=== PATIENT | male | born 1990 | race Caucasian/White ===

== ENCOUNTER 2024-09-11 11:16 | Outpatient (CLI) | payer OTHER, SELFPAY ==
--- NOTE | ~2024-09-11 | XR_ITS ---
XR thoracic spine 3V 09/11/2024 11:47 Indication: Acute midline pain Procedure: 6 views thoracic spine Comparison: No prior studies for comparison. Findings: There is loss of anterior vertebral body height at T8-L1 with accentuated kyphosis. There a re posterior fusion changes at T2-T4 and T7-T9. Prominent bridging osteophytes at all thoracic spine levels anteriorly. Pedicle hardware intact. No paraspinal soft tissue abnormality. Surrounding osseou s structures within normal limits. Impression: 1: Chronic wedge compression deformities of T8-L1 with accentuated kyphosis. 2: Posterior fusion at T2-4 and T7-T9. Reviewed, dictated and finalized at location A. Impression: 1: Chronic wedge compression deformities of T8-L1 with accentuated kyphosis. 2: Posterior fusion at T2-4 and T7-T9.
--- NOTE | ~2024-09-11 | XR_ITS ---
XR lumbar spine min 4V 09/11/2024 11:47 Indication: Back pain Procedure: Acute midline back pain Comparison: No prior studies for comparison. Findings: There is mild wedge compression deformity of L1 and T12, likely chronic. Prominent bridging osteophytes of the lower thoracic and upper lumbar spine. There is multilevel facet hypertrophy. The re is disc narrowing at L5-S1. No evidence for spondylolisthesis. Impression: 1: Moderate lumbar spondylosis with chronic wedge compression deformities of T12 and L1. Reviewed, dictated and finalized at location A. Impression: 1: Moderate lumbar spondylosis with chronic wedge compression deformities of T1 2 and L1.
--- OUTSIDE RECORDS SUMMARY | 2024-09-11 11:43 | XMS_ITS | Data Portability ---
Author Organization [facility] Vishal Jennifer Address [address] [place] [address] Care Team Providers Care Manager Lighting Name Role Phone TASHIA SMITH Primary Care Provider SILVIO Banks Psychiatrist Assessment No assessment recorded. Plan of Treatment Reminders Order Date Submit Date Provider Last Modified By Organization Details Last Modified Time Details Appointments None recorded . Lab HbA1c (hemoglo bin A1c), blood 018 07/15/19 18 [facility], [address], [place], [address], 8 16:28:32 lipid panel, serum 018 07/15/19 18 [facility], [address], [place], [address], 8 16:28:31 CMP, serum or plasma 018 07/15/19 18 [facility], [address], [place], [address], 8 16:28:31 Referral None recorded . Procedures None recorded . Surgeries None recorded . Imaging None recorded . Medication Orders None recorded . Patient Targets Encounter Date Encounter Id Patient Goals Patient Target Last Modified By Organization Details Last Modified Time 07/14/[id number] Cut down on soda and juice eewig Not available 07/14/2017 16:22:50 Patient Instructions Encounter Date Encounter Id Patient Instructions Last Modified By Organization Details Last Modified Time 07/14/[id number] When You Want to Lose Weight: Care Instructions eewig Not available 07/14/2017 16:28:31 starting a weigh t loss plan: care instructions eewig Not available 07/14/2017 16:28:31 body mass index: care instructions eewig Not available 07/14/2017 16:28:31 A healthy lifestyle: care instructions eewig Not available 07/14/2017 16:28:31 See a dentist Walk 30 minutes/day Cut out soda/juice eewig Not available 07/14/2017 16:29:19 Patient to RTC i n 2 weeks for lab results f/u and will at that time decide if he would like to try Weight Watchers/PT; given goal to cut soda back to 1-2 times/week but patient staets that he does not feel that this is realistic for him eewig Not available 07/15/2017 08:42:27 Reason for Referral None Reported. Problems No Known Problems Procedures Surgical History Date Name Laterality Status Provider Name and Address Organization Details Recorded Time 6 Tonsillectomy completed Lady Ramey MA [facility] 07/14/2017 15:51:36 Imaging Results None recorded. Procedure Notes None recorded. Medical Equipment None Reported. Allergies No known drug allergies Medications Name Sig Start Date Stop Date Status Note LastModified by Organization Details LastModified Time venlafaxine ER 37.5 mg capsule,exten ded release 24 hr 07/14 completed Not Available Not Available Not Available venlafaxine ER 75 mg capsule,exten ded release 24 hr active Rx'd by Dr. Ventura Not Available Not Available Not Available buspirone 10 mg tablet active Rx'd by Dr. Ventura Not Available Not Available Not Available Vitals Date Recorded Systolic And Diastolic Provider Name and Address Organization Details Last Updated DateTime 07/14/2017 126/84 mm[Hg] Tashia Smith PA-C Attn: [facility],[address] [facility], [place], [address], [facility] 07/14/2017 16:27:43 Date Recorded Body height Body mass index (BMI) Body weight Oxygen saturation Oxygen saturation in Arterial blood by Pulse oximetry Heart rate Body temperature Systolic And Diastolic Provider Name and Address Organization Details Last Updated DateTime 8 190.5 cm 54.5 kg/m2 020655. 27 g 99 % 99 % 112 /min 98.2 [degF] 136/100 mm[Hg] Lady Ramey [place] - [facility] 8 15:48:08 Social History Question Answer Notes LastModified by Organizat ion Details LastModified Time Tobacco Smoking Status Never Smoker Lady Ramey [place] null, [place] - [facility] 07/14/2017 15:50:12 Do You Have An Advance Directive? No Information not available 07/14/2017 What Is Your Level Of Caffeine Consumption? Moderate Information not available 07/14/2017 What Type Of Diet Are You Following? REGULAR Information not available 07/14/2017 Education 2 Year College Information not available 07/14/2017 Are There Any Guns Present In Your Home? No Information not available 07/14/2017 Hard Of Hearing Or Deaf In One Or Both Ears? No Information not available 07/14/2017 Legally Blind In One Or Both Eyes? No Information not available 07/14/2017 Marital Status Single Informatio n not available 07/14/2017 What Was The Date Of Your Most Recent Tobacco Screening? 07/14/2017 Information not available 09/08/2018 Performs Monthly Self-breast Exam? No Information not available 07/14/2017 Seat Belts Used Routinely No Information not available 07/14/2017 Smoke Alarm In Home Yes Information not available 07/14/2017 General Stress Level Medium Information not available 07/14/2017 Do You Use Sunscreen Routinely? Yes Information not available 07/14/2017 Sex: Unknown Functional Status Question Answer Note LastModified by Organization D etails LastModified Time What is your level of alcohol consumption? None Information not available 07/14/2017 What is your exercise level? None Information not available 07/14/2017 Mental Status None recorded. Family History Relationship Description Onset Age of this Age Resolved Age Notes LastModified by Organization Details LastModified Time Mother Asthma mnelsonma Not available 07/14/2017 15:49:14 Mother Cerebrovascu lar accident 59 mnelsonma Not available 15:49:39 Mother Diabetes mellitus mnelsonma Not available 2017 15:49:49 Mother Hypertensive disorder mnelsonma Not available 2017 15:50:01 Medical History Condition Response Coronary Artery Disease N Other N Atrial Fibrillation N High Blood Pressure Y Kidney or Bladder Problems N Thyroid Problems N GI Problems N Depression Y COPD N Blood Clots N Skin Problems N Anemia N Heart Attack (DE) N Anxiety Disorder Y Diabetes N Muscle, Joint, or Bone Problems N Seizures/Epilepsy N Acid Reflux (GERD) N Cancer N Stroke N Asthma Y Allergies Y High Cholesterol N Hepatitis N Liver Disease N Headaches N Heart Failure N Osteoporosis N Immunizations Vaccine Type Date Status Note Provider Nam e and Address Organization Details Recorded Time COVID-19, mRNA, LNP-S, PF, 30 mcg/0.3 mL dose 05/17/2020 completed Guicho mckeon [place] - [facility] 08/20/2020 16:26:15 COVID-19, mRNA, LNP-S, PF, 30 mcg/0.3 mL dose 06/07/2020 completed LING Palafox - [facility] 08/20/2020 16:26:36 Tdap 07/14/2017 completed Not Available [facility] 03/04/2019 02:35:25 Past Encounters Encounter ID Performer Location Encounter Start Date Encounter Closed Date Diagnosis/Indication Diagnosis SNOMED-CT Code Diagnosis ICD10 Code Diagnosis Note [id number] MD Belkis Flores (Adult Med) [address] [place] [phone] 07/14/2017 15:18:28 07/14/2017 16:36:46 Adult health examination 322297710 Z00.01 Body mass index 40+ - severely obese 113689006 Z68.43 Advised 30 minutes of exercise 5 days/week Advised to not drink his calories Advised 3 balanced meals/day with plenty of fruits and vegetables Discussed the options of Weight Watchers and gastric bypass with patient, states he is not interested at this time but will think about it Active or passive immunization 656227641 Z23 Depressive disorder [address] Ventura in psychiatry . Seasonal allergy 6408592 04 J30.2 Has tried Zyrtec without relief. Advised to try Claritin OTC. Acanthosis nigricans 402 407151 L83 Will check a1c Chronic low back pain 27 2005986 M54.5 Discussed that since this is chronic we would need to begin with PT and possibly an xrayLong discussion about his weight and how that is likely a large contributi ng factor to his back pain, which he states he knows but he doesn't know if he can do anything about this as he doesn't feel that he is able to give up soda and cannot exercise d/t back painStates that he has limited transporta tion and does not feel that PT is a good option for him at this time Health Concerns Section Related Observation LastModified by Organization Detai ls LastModified Time None Recorded Concern Status LastModified by Organization Details LastModified Time None Recorded Advance Directives Directive N: Payers Insurance Date Sequence Insurance Name Policy Number Policy Rice Covered Member ID Rice Member ID Guarantor Name 08/01/2020 1 [facility] - DOS PRIOR TO 2020 (MEDICAID REPLACEMENT - HMO) Obdulio Mesa [id number] Obdulio Mesa
--- OUTSIDE RECORDS SUMMARY | 2024-09-11 11:43 | XMS_ITS | Continuity of Care Document ---
Author Organization [facility] Address [address] [place] [address] [place] [address] Phone Care Team Providers Care [employer] E[employer]ctor Name Role Phone Michi Walker MD Unavailable Unavailable Allergies, Adverse Reactions, Alerts Substance Reaction Status Criticality No Known Allergies Active No Inform ation Medications Medication Instructions Dosage Effective Dates (start - stop) Status Comments Toprol XL 50 mg tablet,extended release take 1 tablet by oral route every day 50 MG - Active Norvasc 10 mg tablet take 1 tablet by or al route every day 10 MG - Active Effexor XR 75 mg capsule,extended release take 1 capsule by oral route every day with food 75 MG - Active buspirone 10 mg tablet take 1 tablet by oral route 3 times every day 10 MG - Active Procedures Procedure Date OFFICE/OUTPATIENT VISIT, EST OFFICE/OUTPATIENT VISIT, EST PREV VISIT, EST, AGE 18-39 OFFICE/OUTPATIENT VISIT, EST OFFICE/OUTPATIENT VISIT, EST OFFICE/OUTPATIENT VISIT, EST OFFICE/OUTPATIENT VISIT, EST OFFICE/OUTPATIENT VISIT, EST PREV VISIT, EST, AGE 18-39 OFFICE/OUTPATIENT VISIT, EST OFFICE/OUTPATIENT VISIT, EST OFFICE/OUTPATIENT VISIT, EST OFFICE/OUTPATIENT VISIT, EST OFFICE/OUTPATIENT VISIT, EST PREV VISIT, NEW, AGE 18-39 Advance Directives Directive Yes / No Effective Date File Name No Information Encounters Encounter Description Practice Location Reason(s) For Visit Diagnoses Date Provider Providers Copied on Encounter OFFICE/OUTPA TIENT VISIT, EST [facility], [address], [place], [place], [address], [place] tel:[phone] [facility] Htn (chief complaint) protein1 (chief complaint) anemia1 (chief complaint) anxiety1 (chief complaint) AnemiaEssential (primary) hypertensionGeneral ized Anxiety DisorderAbnormality of globulin 1 Aaron Borden. [address], [place], [place], [address] , [place]. tel:[phone] OFFICE/OUTPA TIENT VISIT, EST [facility], [address], [place], [place], [address], [place] tel:[phone] [facility] ear pain1 (chief complaint) HTN (chief complaint) PE (chief complaint) anemia1 (chief complaint) Essential (primary) hypertensionPulmona ry embolismOtalgia, left earAnemia 1 Aaron Borden. [address], [place], [place], [address] , [place]. tel:[phone] PREV VISIT, EST, AGE 18-39 [facility], [address], [place], [place], [address], [place] tel:[phone] [facility] Physical (chief complaint) Encounter for general adult medical examination without abnormal findings 0 Aaron Borden. [address], [place], [place], [address] , [place]. tel:[phone] OFFICE/OUTPA TIENT VISIT, EST [facility], [address], [place], [place], [address], [place] tel:[phone] [facility] ear pain1 (chief complaint) PE (chief complaint) rash (chief complaint) Otalgia, left earPulmonary embolismRash 0 Aaron Borden. [address], [place], [place], [address] , [place]. tel:[phone] OFFICE/OUTPA TIENT VISIT, [facility], [address], [place], [place], [address], [place] tel:[phone] [facility] anemia1 (chief complaint) INR (chief complaint) nutrition1 (chief complaint) protein1 (chief complaint) weakness1 (chief complaint) AnemiaAbnormalities of gaitAbnormal weight lossPulmonary embolismWeakness 3 0-202 0 Aaron Borden. [address], [place], [place], [address] , [place]. tel:[phone] OFFICE/OUTPA TIENT VISIT, [facility], [address], [place], [place], [address], [place] tel:[phone] [facility] leg fracture1 (chief complaint) HTN (chief complaint) weight loss1 (chief complaint) leg weakness1 (chief complaint) Essential (primary) hypertensionWeaknes sAbnormalities of gaitAbnormal weight lossPulmonary embolism 0 2 0 Aaron Borden. [address], [place], [place], [address] , [place]. tel:[phone] OFFICE/OUTPA TIENT VISIT, [facility], [address], [place], [place], [address], [place] tel:[phone] [facility] paralysis1 (chief complaint) HTN (chief complaint) DVT of legPulmonary embolismOther spondylosis, thoracic regionWeakness 8 0 Aaron Borden. [address], [place], [place], [address] , [place]. tel:[phone] Referring Provider: Michi Walker [address], [place], [place], [address]. tel:[phone] OFFICE/OUTPA TIENT VISIT, [facility], [address], [place], [place], [address], [place] tel:[phone] [facility] leg weakness1 (chief complaint) HTN (chief complaint) Essential (primary) hypertensionWeaknes s 9 Aaron Borden. [address], [place], [place], [address] , [place]. [phone] PREV VISIT, EST, AGE 18-39 [facility], [address], [place], [place], [address], [place] [phone] [facility] Physical (chief complaint) Encntr for general adult medical exam w/o abnormal findings 9 Aaron Borden. [address], [place], [place], [address] , [place]. [phone] Referring Provider: Katie Montes [address], [place], [place], [address]. tel:[phone] OFFICE/OUTPA TIENT VISIT, [facility], [address], [place], [place], [address], [place] [phone] [facility] fatigue1 (chief complaint) hematuria1 (chief complaint) HTN (chief complaint) obesity1 (chief complaint) Body mass index (BMI) 60.0-69.9, adultHematuriaEssen tial (primary) hypertensionFatigue Folic acid deficiency 9 Aaron Hurtado [address], [place], [place], [address] , [place]. tel:[phone] Referring Provider: Katie Montes [address], [place], [place], [address]. tel:[phone] OFFICE/OUTPA TIENT VISIT, [facility], [address], [place], [place], [address], [place] [phone] [facility] folate1 (chief complaint) HTN (chief complaint) hematuria1 (chief complaint) vitamin D1 (chief complaint) fatigue1 (chief complaint) Body mass index (BMI) 50-59.9 , adultFolic acid deficiencyHematuria Essential (primary) hypertensionFatigue Generalized Anxiety Disorder 9 Aaron Hurtado [address], [place], [place], [address] , [place]. tel:[phone] OFFICE/OUTPA TIENT VISIT, [facility], [address], [place], [place], [address], [place] tel:[phone] [facility] HTn (chief complaint) sinus1 (chief complaint) hematuria1 (chief complaint) Essential (primary) hypertensionHematur iaAcute sinusitisBody mass index (BMI) 50-59.9 , adultFolic acid deficiency 8 Aaron Borden. [address], [place], [place], [address] , [place]. tel:[phone] Referring Provider: Katie Montes [address], [place], [place], [address]. tel:[phone] OFFICE/OUTPA TIENT VISIT, [facility], [address], [place], [place], [address], [place] tel:[phone] [facility] hematuria1 (chief complaint) fatigue1 (chief complaint) HTN (chief complaint) Body mass index (BMI) 50-59.9 , adultEssential (primary) hypertensionHematur iaFolic acid deficiencyFatigue 8 Aaron Hurtado [address], [place], [place], [address] , [place]. [phone] Referring Provider: Katie Montes [address], [place], [place], [address]. tel:[phone] OFFICE/OUTPA TIENT VISIT, [facility], [address], [place], [place], [address], [place] tel:[phone] [facility] fatigue1 (chief complaint) vitamin1 (chief complaint) hematuria1 (chief complaint) lumbago1 (chief complaint) Body mass index (BMI) 50-59.9 , adultHematuriaFolic acid deficiencyEssential (primary) hypertensionLumbago 8 Aaron Hurtado [address], [place], [place], [address] , [place]. [phone] Referring Provider: Katie Montes [address], [place], [place], [address]. tel:[phone] PREV VISIT, NEW, AGE 18-39 [facility], [address], [place], [place], [address], tel:[phone] [facility] PHysical (chief complaint) Encntr for general adult medical exam w/o abnormal findings 8 Aaron Borden. [address], [place], [place], [address] , [place]. [phone] Referring Provider: Michi Walker, [address], [place], [place], [address]. tel:[phone] Family History Family Member Type Diagnosis Age At Onset Mother Problem (finding) Stroke 59 Father Problem (finding) Alive and well Payers Payer name Insurance type Covered alliance party ID Authoriza tion(s) No Information Social History Type Description Quantity Date Captured Comments Alcohol Use Details No Caffeine Use Details Unknown Tobacco Use Status Current non-smoker 20 Smoking Status Never smoker Sex Male Vital Signs Date / Time: Height Weight BMI Pulse Rate Blood Pressure Temperature Respiratory Rate Body Surface Area Head Circumference BMI percentile Pulse Ox Inhaled Ox 11:51 PM 75.00 in 350.00 lbs 43.7 5 kg/m eter (2) Chief Complaint And Reason For Visit From encounter dated '01/20/2021 20:26'. Htn (chief complaint). Description: Pt takes norvasc and toprol and he states that his bp is ok at home but he never checks it. Pt denies any chest pain or headache protein1 (chief complaint). Description: Pt has mild high total protein and total globulin. Pt is noncompliant with lab work anemia1 (chief complaint). Description: Pt has history of microcytic anemia Pt denies any blood loss Pt never repeat blood count as recommended. anxiety1 (chief complaint). Description: Pt has chronic anxiety and depression Pt takes effexor andbuspar and doing ok Pt denies any suicidal or homicidal thought Pt denies any crying spells ,pt sees psychiatrist. Plan Of Treatment Date Type Action Status Goal Special diet education compl eted Goal Special diet education compl eted Goal Special diet education compl eted Goal Special diet education compl eted Goal Special diet education compl eted Goal Special diet education compl eted Goal Special diet education compl eted Goal Prescribed dietary intake co mpleted Referral Ordered: Physical Therapy (related to Other spondylosis, cervicothoracic region) ordered Referral Referred To: Physical Therapy Ordered: Referrals: Physical Therapy. Evaluate and treat ordered Referral Ordered: CT ABDOMEN&PELVIS W/CONTRAST ordered Referral Ordered: LUMBAR XRAY AP AND LAT ONLY ordered History Of Present Illness Encounter Date Complaint History Of Prese nt Illness protein1 Pt has mild high total protein and total globulin. Pt is noncompliant with lab work Htn Pt takes norvasc and toprol and he states that his bp is ok at home but he never checks it. Pt denies any chest pain or headache anemia1 Pt has history o f microcytic anemia Pt denies any blood loss Pt never repeat blood count as recommended. anxiety1 Pt has chronic a nxiety and depression Pt takes effexor and buspar and doing ok Pt denies any suicidal or homicidal thought Pt denies any crying spells ,pt sees psychiatrist. PE Pt has been off coumadin for 6 months Pt denies any leg pain or swelling or any chest pain or sob. anemia1 Pt had mild anem ia Pt denies any blood loss Pt has not done repeat lab yet HTN Pt takes norvasc and metoprolol. Pt only has been taking metoprolol 50 mg once per day instead of TID Pt states that he does not know what happened. Pt states that his bp has been fine with metoprolol once per day and norvasc. Pt denies any chest pain or headache ear pain1 Pt c/o acute lef t ear pain for 3-4 days. Pt notices mild muffled hearing Pt denies any drainage Pt denies any swimming or water into left ear Pt feels mild left ear pressure as well. Pt denies any sinus symptoms Pt denies any sore throat. Physical Pt needs annual physical. Pt has history of spinal stenosis and partial leg paralysis. Pt is s/p spinal surgery. Pt is recovering well .Pt is doing PT at home and he is gaining strength and he is able to walk with walker. Pt has HTn. His bp is around 130/80s with metoprolol and norvasc. . Pt weaned himself off neurontin and doing ok .Pt denies any neuropathy symptoms. Pt has anxiety and depression .Pt takes effexor and buspar and doing ok Pt denies any suicidal or homicidal thought Pt is off baclofen also Pt had post op DVT with PE 10 months ago. Pt wants to get off coumadin. ear pain1 Pt c/o acute ons et of left ear pain since yesterday. Pt denies any drainage Pt notices muffled hearing from left side ,Pt denies any swimming or any water into left ear Pt denies any trauma to left ear Pt states that togging left earlobe causes pain as well. Pt denies any headache or sinus symptoms. Pt denies any sore throat PE Pt takes coumadi n 6 mg daily and his IRN is 2.2. Pt denies any bleeding rash The patient pres ents for rash. Pertinent negatives include bleeding, fatigue, pruritus and scaling. Additional information: Pt notices a small area of red rash right forearm since 2 months ago while he was at custodial Pt denies any spreading. Pt states that the rash never fully went away. Pt states that rash appears slightly better sometimes but never goes away. Pt notices mild itching sometimes. Pt tried hydrocortisone cream while at custodial which did not make it go away but did help with the itch. Pt denies any blisters or warmth. INR Pt is on 5 mg co umadin and his INR is borderline low. nutrition1 Pt appears to will ve low nutrition. Pt states that he has not been eating well while on custodial and he is eating better now since getting home. Pt does not have scale to check his weight at home protein1 Pt has mild high total protein and total globulin. weakness1 Pt has chronic l eg weakness with some bilateral LE neuropathy symptoms. Pt denies any loss of bladder control. Pt is ambulating with rolling walker and he is essentially home bound. He is on neurontin and baclofen currently. Pt denies any loss of bladder or bowel control. Pt is getting home PT now anemia1 Pt has mild anem ia with low MCV. Pt denies any blood loss leg weakness1 Pt has chronic l eg weakness with some bilateral LE neuropathy symptoms. Pt denies any loss of bladder control. Pt is ambulating with rolling walker and he is essentially home bound. He is on neurontin and baclofen currently. Pt denies any loss of bladder or bowel control leg fracture1 Pt lost balance and fell and broke his left tib/fib back in March. Pt had surgery done left tib/fib with pin. Pt was at nursing for the past 3 months but he was not set up for home health upon discharge. He is basically immobile due to chronic spine spondylosis. HTN Pt is on norvasc and he is off losartan. His BP has been around 120/70 at home weight loss1 Pt lost close to 100 pounds during last 6 months. Pt denies any GI issue or weight. 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 Pt states that his leg feels stronger now. Pt developed DVt both arm and leg and also PE post op Pt is on coumadin now. Pt is on 3 mg coumadin now and his INR was 1.5 yesterday. Pt denies any chest pain or sob. HTN Pt has HTn ,pt t shiela losartan .His BP is ok leg weakness1 Pt has mild mid and low back pain. Pt denies any injury Pt denies any sciatica or any loss of bladder control, pt has persistent bilateral lower extremity weakness, however, he feels that he is gaining strength with PT and time Pt is able to ambulate with walker fairly easily. Pt states that home PT is helping. 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 Pt was told surgery is not options Pt was told to continue to do home PT and regain strength. HTN Pt has HTn. P ta kes losartan and his BP is stable Physical Pt needs annual physical Pt woke up about 12 days ago with severe bilateral lower extremity weakness and also some sensory loss. Pt denies any headache, speech problem, vision change, upper extremity symptoms, etc Pt denies any drug use Pt denies any worsening back pain Pt has chronic low back pain Pt denies any loss of bladder control Pt was admitted to [facility] for further evaluation. cT of head was unremarkable. CT of C, T and L spine and myelogram showed severe spondylosis of T and L spine. Pt did receive steroid and his symptoms improved. Pt initially had some lower extremity sensory loss which also improved upon discharge Pt present to office follow up He is about 50% improved since his initial symptoms Pt denies any loss of bladder control. Pt also has HTn and anxiety and depression. Pt takes losartan and effexor and buspar and doing ok. Pt denies any suicidal or homicidal thought. Pt denies any crying spells obesity1 Pt is morbidly o bese pt does not want bariatric surgery Pt has not been able to lose weight on his own fatigue1 Pt states that h e feels more energy now since taking folic acid and b12 supplement. Pt does snore. Pt does not want sleep study hematuria1 Pt had hematuria pt denies any UTI symptoms Pt did not do Ct. Pt denies any abd pian .Hematuria resolved HTN bP stable with l osartan. folate1 Pt has low folat e and b12. Pt has been taking folic acid and b12 supplement. Pt feels more energy. Pt also has been taking vitamin D weekly HTN Pt has HTn Pt ta kes losartan and his BP is stable Pt denies any chest pain or headache hematuria1 Pt denies any UT I symptoms Pt has not done UA yet. Pt denies any flank pain vitamin D1 Pt has low D. Pt is taking vitamin D supplement weekly fatigue1 Pt has fatigue a nd snoring at night. His epworth score is 16. Pt does not want to do sleep study HTn Pt has HTn. Pt t akes losartan and his BP is normal now. Pt denies any chest pain or headache sinus1 Pt c/o sinus con gestion, purulent sinus drainage, sore throat sinus pain, headache, ear pain, productive coughing for one week. Pt failed OTC meds Pt denies any GI issue Pt has postnasal drainage hematuria1 Pt has hematuria . pt is noncompliant with CT scan. Pt denies any UTI symptoms hematuria1 Pt has mild hernando turia. Pt denies any UTI symptoms. Pt has not done Ct yet. Pt denies any flank pain, fever, chill, urinarys ymptoms fatigue1 Pt has been taki ng folic acid and vitamin D and he feels more energy. Pt denies any chest pain or sob HTN Pt has HTn Pt ta kes losartan 50 mg daily. His BP is still high pt denies any chest pain or headache fatigue1 pt denies any fa tigue Pt does snore at night. Pt does not want sleep study vitamin1 Pt has low b12 a nd folate and low D. Pt eats regular food. Pt does eat meat and vegetable and fruits. hematuria1 Pt has hematuria . Pt denies any flank pain. Pt carla any urinary symptoms lumbago1 Pt has low back pain for several years pt denies any injury pt denies any loss of bladder control. Pt denies any sciatica. Pt denies any numbness. Lumbar x ray showed mild scoliosis, which is chronic condition Pt denies any worsening pain PHysical Pt needs annual physical. pt is morbidly obese. He has difficulty with weight loss. Pt sees psychiatrist and he is taking effexor and buspar and he is doing ok. Pt denies any suicidal or homicidal thought Pt has chronic dull low back pain Pt denies any sciatica or any loss of bladder control. Pt denies any numbness. Pt denies any other complaints Pt was told he has DDD when he was back in high school. Pt states that his low back pain seems to be worse recently. Pt does snore and he feels mildly fatigue. Pt denies any other complaints Instructions Date Instruction Additional Infor mation Special diet education Related t o Body mass index (BMI) 50.0-59.9, adult Increase activity. Related to Es sential (primary) hypertension Follow a low sodium diet. Relate d to Essential (primary) hypertension Special diet education Related t o Body mass index (BMI) 60.0-69.9, adult Increase physical activity Relat ed to Muscle weakness Weight management Related to Mus leonard weakness Weight management Related to Hem aturia Increase physical activity Relat ed to Hematuria Special diet education Related t o Body mass index (BMI) 60.0-69.9, adult Weight management Related to Fol ic acid deficiency Increase physical activity Relat ed to Folic acid deficiency Special diet education Related t o Body mass index (BMI) 50-59.9, adult Special diet education Related t o Body mass index (BMI) 50-59.9, adult Follow a low sodium diet. Relate d to Essential (primary) hypertension Follow a low sodium diet. Relate d to Essential (primary) hypertension Special diet education Related t o Body mass index (BMI) 50-59.9 , adult Increase activity. Related to Es sential (primary) hypertension Increase physical activity Relat ed to Hematuria Special diet education Related t o Body mass index (BMI) 50-59.9 , adult Weight management Related to Hem aturia Increase activity. Related to En cntr for general adult medical exam w/o abnormal findings Prescribed dietary intake Relate d to Body mass index (BMI) 50-59.9 , adult Increase activity. Related to En cntr for general adult medical exam w/o abnormal findings Assessments Type Assessment Date assessment Anemia assessment Essential (primary) hypertension assessment Generalized Anxiety Disorder Jan assessment Abnormality of globulin Mental Status Date Cognitive Assessment Orientation - [place] ed to time, place, person, situation.
--- OUTSIDE RECORDS SUMMARY | 2024-09-11 11:43 | XMS_ITS | Referral Summary ---
Author Organization [facility] Home Care [facility] Address [address] [place] [address] Care Team Providers Care Independent Living Instructor Name Role Phone Raven Servin STEAM [employer]ANT CONTROL ROOM OPERATOR Primary Care Provider [phone] Encounters Date Type Department Care Team Description 09/07/2024 Orders Only [facility] Medicine [address] [place] [address] [place] [phone] Raven Servin NP Acute midline thoracic back pain (Primary Dx) 08/31/2024 11:30 AM CDT Office Visit [address] [place] [phone] Raven Servin NP Acute midline thoracic back pain (Primary Dx); Acute pain of left shoulder; BMI 50.0-59.9, adult ([facility]) 08/10/[address] [place] [phone] Raven Servin NP from Last 3 Months Allergies No known active allergies Medications acetaminophen (TYLENOL) 500 mg tabletIndicati ons:Pain Take 1 tablet (500 mg total) by mouth every 6 (six) hours as needed for pain Take 1-2 tabs every 6 hours as needed for pain. VORB: Jerry/Dr Walker Active busPIRone (BUSPAR) 10 mg tabletIndicati ons:Generalize d Anxiety Disorder Take 1 tablet (10 mg total) by mouth 2 (two) times a day written order:Dr North Active venlafaxine XR (EFFEXOR-XR) 75 mg 24 hr capsuleIndicat ions:Anxiety with Depression Take 3 capsules (225 mg total) by mouth daily written order:Dr North Active venlafaxine XR (EFFEXOR-XR) 150 mg 24 hr capsule Take 1 capsule (150 mg total) by mouth daily 05/13/19 22 Active metoprolol XL (TOPROL-XL) 100 mg 24 hr tabletIndicati ons:Hypertensi on, essential Take 1 tablet (100 mg total) by mouth daily 90 tablet 3 12/08/19 24 Active amLODIPine (NORVASC) 10 mg tabletIndicati ons:hypertensi on Take 1 tablet (10 mg total) by mouth daily 90 tablet 3 12/08/19 24 Active methylPREDNISo lone (MEDROL DOSEPACK) 4 mg DosepackIndica tions:Acute midline thoracic back pain Take as directed on package. 21 tablet 09/01/[address] (VOLTAREN) 75 mg EC tabletIndicati ons:Osteoarthr itis,scoliosis Take 1 tablet (75 mg total) by mouth 2 (two) times a day 60 tablet 11 09/01/19 25 026 Active baclofen (LIORESAL) 10 mg tabletIndicati ons:Lumbar back pain TAKE 1 TABLET BY MOUTH THREE TIMES A DAY 270 tablet 1 09/02/19 25 Active baclofen (LIORESAL) 10 mg tabletIndicati ons:Lumbar back pain TAKE 1 TABLET BY MOUTH THREE TIMES A DAY 90 tablet 08/10/19 25 025 Discontinued meloxicam (MOBIC) 15 mg tabletIndicati ons:Lumbar back pain Take 1 tablet (15 mg total) by mouth daily 30 tablet 1 08/11/19 25 025 Discontinued(Al ternate therapy) Active Problems Problem Noted Date Diagnosed Date Acute pain of left shoulder 08/31/2024 Abscess 08/11/2023 Weight loss 10/13/2021 Assessment & Plan (10/13/2021 6:55 PM CDT): Encouraged continued attempts at weight loss, will evaluate further with labs. Will notify him of lab results as they become available. Acute postoperative pulmonary insufficiency 02/15 Anemia associated with acute blood loss 02/24/19 22 Closed fracture of posterior malleolus of left t ibia 02/24/2021 Leukocytosis 02/24/2021 Myelopathy 02/24/2021 Physical exam, annual 02/24/2021 Assessment & Plan (02/24/2021 3:59 PM [employer]): Retrieve records from previous pcp for review BMI 50.0-59.9, adult 02/24/2021 Assessment & Plan (08/31/2024 11:36 AM CDT): Discussed the patient's BMI. The BMI is above average. BMI management plan is completed. BMI Follow-up includes: nutrition counseling, exercise counseling and education provided. Assessment & Plan (12/08/2023 1:02 PM CDT): Discussed the patient's BMI. The BMI is above average. BMI management plan is completed. BMI Follow-up includes: nutrition counseling, exercise counseling and education provided. Assessment & Plan (08/30/2023 2:44 PM CDT): Discussed the patient's BMI. The BMI is above average. BMI management plan is completed. BMI Follow-up includes: nutrition counseling, exercise counseling and education provided. Assessment & Plan (08/11/2023 1:43 PM CDT): Discussed the patient's BMI. The BMI is above average. BMI management plan is completed. BMI Follow-up includes: nutrition counseling, exercise counseling and education provided. Assessment & Plan (06/02/2023 2:03 PM CDT): Discussed the patient's BMI. The BMI is above average. BMI management plan is completed. BMI Follow-up includes: nutrition counseling, exercise counseling and education provided. Assessment & Plan (06/01/2022 2:30 PM CDT): Discussed the patients BMI: The BMI is above average BMI management is complete. BMI follow-up includes: Nutrition Counseling and education provided Assessment & Plan (10/13/2021 6:55 PM CDT): Encouraged continued attempts at weight loss, will evaluate further with labs. Will notify him of lab results as they become available. Assessment & Plan (05/19/2021 7:26 PM CDT): Obesity is unchanged. Discussed the patient's BMI. The BMI is above average. BMI management plan is completed. BMI Follow-up includes: nutrition counseling, exercise counseling and education provided. He declines referral for bariatric surgery. Assessment & Plan (02/24/2021 3:59 PM [employer]): Discussed the patient's BMI. The BMI is above average. BMI management plan is completed. BMI Follow-up includes: nutrition counseling, exercise counseling and education provided. Morbidly obese 02/24/2021 Assessment & Plan (08/31/2024 11:36 AM CDT): Discussed the patient's BMI. The BMI is above average. BMI management plan is completed. BMI Follow-up includes: nutrition counseling, exercise counseling and education provided. Assessment & Plan (12/08/2023 1:02 PM CDT): Discussed the patient's BMI. The BMI is above average. BMI management plan is completed. BMI Follow-up includes: nutrition counseling, exercise counseling and education provided. Assessment & Plan (12/01/2022 2:40 PM CDT): Discussed the patient's BMI. The BMI is above average. BMI management plan is completed. BMI Follow-up includes: nutrition counseling, exercise counseling and education provided. Assessment & Plan (02/24/2021 3:58 PM [employer]): Discussed the patient's BMI. The BMI is above average. BMI management plan is completed. BMI Follow-up includes: nutrition counseling, exercise counseling and education provided. Morbid (severe) obesity due to excess calories 0 04/05/2019 Assessment & Plan (08/11/2023 1:43 PM CDT): Discussed the patient's BMI. The BMI is above average. BMI management plan is completed. BMI Follow-up includes: nutrition counseling, exercise counseling and education provided. Arthropathy, unspecified 04/05/2019 Constipation, unspecified 04/05/2019 Major depressive disorder, single episode, unspe cified 04/05/2019 Assessment & Plan (10/13/2021 6:55 PM CDT): Stable on current medications, continue the same at this time and refill as needed. Assessment & Plan (05/19/2021 7:26 PM CDT): Continue with care per psychiatrist Assessment & Plan (02/24/2021 3:59 PM [employer]): Stable, continue care same at this time Unspecified fracture of shaf t of left tibia, subsequent encounter for closed fracture with routine healing 04/05/2019 Scoliosis, unspecified 04/05/2019 Closed fracture of left fibula and tibia 020 Left leg pain 03/30/2019 Moderate recurrent major depression 02/17/2019 Other pulmonary embolism without acute cor pulmo nale 02/02/2019 Assessment & Plan (02/24/2021 3:58 PM [employer]): Retrieve records for review, including anticoagulation workup Spinal stenosis, site unspecified 02/02/2019 Assessment & Plan (05/19/2021 7:27 PM CDT): Will refer for PT Assessment & Plan (02/24/2021 3:58 PM [employer]): Stable, continue care same at this time Fall 01/08/2019 Weakness 09/29/2018 Vitamin D deficiency, unspecified 04/15/2018 Overview (02/24/2021): Note: Vitamin D deficiency Depressive disorder 07/14/2017 Acanthosis nigricans 07/14/2017 Lumbar back pain 07/14/2017 Psychophysiological insomnia 02/15/2017 Hypertension, essential 06/03/2016 Assessment & Plan (10/13/2021 6:55 PM CDT): Increase toprol xl from 50mg every day to 100mg every day He was advised to monitor home bp with goal 120-130/80s and call over the next week with ranges as medications may need to be adjusted. Assessment & Plan (05/19/2021 7:26 PM CDT): He will continue meds same at this time He will go home today and take meds as he forgot them Assessment & Plan (02/24/2021 3:59 PM [employer]): Stable, continue care same at this time Degeneration of lumbar or lumbosacral interverte bral disc 06/14/2014 Anxiety disorder, unspecified 06/14/2014 Other kyphoscoliosis and scoliosis 03/23/2006 Resolved Problems Problem Noted Date Diagnosed Date Resolved Date BMI 40.0-44.9, adult 07/14/2017 023 Immunizations Immunization Administration Dates Next Due Influenza, Unspecified 06/02/2023(Deferr ed: Patient Refused),02/15/2023(Deferred: Patient Refused),02/15/2023(Deferred: Patient Refused),06/01/2022(Deferred: Patient Refused),03/19/2021(Deferred: Patient Refused),02/24/2021(Deferred: Patient Refused) Tdap 07/14/2017 Social History Tobacco Use Types Packs/Day Years Used Date Smoking Tobacco: Never Smokeless Tobacco: Never Tobacco Cessation:Counseling Given: Not Answered AUDIT-C Answer Date Recorded Q1: How often do you have a drink containing alc ohol? Never 05/19/2021 Average Number of Drinks Not on file 022 Q3: How often do you have si x or more drinks on one occasion? Never 05/19/2021 PHQ-2 Answer Date Recorded PHQ-2 Total Score (If total score is 3 or more points, staff should administer the PHQ-9) 0 08/31/2024 Sex and Gender Information Value Date Recorded Sex Assigned at Not on file Legal Sex Male 6:52 PM [employer] Gender Identity Not on file Sexual Orientation Not on file Occupation Industry Job Start Date Job End Date disabled Not on file Not on file Not on file Last Filed Vital Signs Vital Sign Reading Time Taken Comments Blood Pressure 120/82 08/31/2024 11:35 AM CDT Pulse 80 08/31/2024 11:35 AM CDT Temperature 36.8 C (98.2 F) 08/31/2024 11:35 AM CDT Respiratory Rate 16 12/08/2023 1:01 PM CDT Oxygen Saturation 98% 08/31/2024 11: 35 AM CDT Inhaled Oxygen Concentration - - Weight 187.7 kg (413 lb 12.8 oz) 2024 11:35 AM CDT Height 182.9 cm (6') 08/31/2024 11:35 AM CDT Body Mass Index 56.12 08/31/2024 11:35 AM CDT Plan of Treatment Not on file Insurance [facility] Advance Directives For more information, please contact: [phone] * Full Code (Latest Code Status on File) Date Activated Date Inactivated Comments 03/03/2019 6:35 PM Care Teams Independent Living Instructor Relationship Specialty [place] [address] [place] [id number] PCP - General Internal Medicine 06/01/22
--- OUTSIDE RECORDS SUMMARY | 2024-09-11 11:43 | XMS_ITS | Clinical Summary ---
Author Organization [facility] [employer] [facility] Address [address] [place] [address] Care Team Providers Care Professor Of Political Science Name Role Phone Michi Walker MD Primary Care Provider [phone] Source Comments [facility],non-owned Affiliates and Associated Physician Practices is amultiple site organization consisting of ambulatory clinics and hospital sitesin [place], [place], [place] and [place]. This disclosure is being madepursuant to the Care Everywhere program and may not contain all information available regarding this patient. Last updated 17[employer] [facility] Allergies No known active allergies Medications * Be aware that medications may not be up to date on this document. Alwaysverify current medications with the patient. busPIRone (BUSPAR) 10 MG tablet Take 10 mg by mouth 2 times daily 6 10/19/19 19 Active metoprolol tartrate (LOPRESSOR) 50 MG tablet Take 1 tablet by mouth every 8 hours 02/02/20 19 Active amLODIPine (NORVASC) 10 MG tablet Take 1 tablet by mouth once daily 02/03/20 19 Active polyethylene glycol 3350 (MIRALAX) packet Take 17 g by mouth 2 times daily 02/02/20 19 Active Additional Information Patient not taking.Reported on 04/26/2019 baclofen (LIORESAL) 10 MG tablet Take 1 tablet by mouth 3 times daily May cause drowsiness. 02/02/20 Active acetaminophen (TYLENOL) 325 MG tablet Take 2 tablets by mouth every 4 hours as needed for Pain Maximum allowable Acetaminophen amount = 4 Grams (4000 mg) / 24 hours. 04/04/19 Active bisacodyl (DULCOLAX) 10 MG suppository Insert 1 suppository into the rectum once daily as needed for Constipation 04/04/19 Active senna-docusate (SENOKOT-S) 8.6-50 MG tablet Take 1 tablet by mouth at bedtime 04/04/19 Active Additional Information Patient not taking.Reported on 04/26/2019 calcium 500 MG tablet Take 1 tablet by mouth 2 times daily with morning and evening meal 04/04/19 Active multivitamin daily tablet Take 1 tablet by mouth once daily 04/05/19 Active warfarin (COUMADIN) 5 MG tablet Take 1 tablet by mouth once daily 30 tablet 04/05/19 Active Cyanocobalamin ([facility] VITAMIN B12) 1000 MCG once daily 01/12/20 Active vitamin D, ergocalciferol, (DRISDOL) 1.25 MG (01885 UT) capsule Vitamin D (Ergocalciferol) 1.25 MG (02552 UT) Oral Capsule QTY: 4 capsule Days: 30 Refills: 0 Written: 10/18/18 Patient Instructions: as directed 1 capsule weekly 09/02/19 Active fluticasone propionate (FLONASE) 50 MCG/ACT nasal spray [place] 1 spray into the nose 2 times daily 03/01/19 Active folic acid (FOLVITE) 1 MG tablet once daily 01/12/20 Active gabapentin (NEURONTIN) 300 MG capsule 04/28/19 Active hydrocortisone (HYTONE) 2.5 % cream 05/02/19 Active ibuprofen (EQ IBUPROFEN) 200 MG tablet EQ Ibuprofen 200 MG Oral Tablet QTY: 0 tablet Days: 0 Refills: 0 Written: 10/18/18 Patient Instructions: 1-2 tabs prn or uses Aleve 10/19/19 Active losartan (COZAAR) 100 MG tablet once daily 12/29/19 Active melatonin 3 MG tablet Take 3 mg by mouth once daily as needed 03/01/19 Active naproxen sodium (ALEVE) 220 MG tablet Aleve 220 MG Oral Tablet QTY: 0 tablet Days: 0 Refills: 0 Written: 10/18/18 Patient Instructions: 1-2 tabs as needed or uses Ibuprofen 10/19/19 Active silver sulfADIAZINE (SILVADENE) 1 % cream 05/09/19 Active triamcinolone acetonide (KENALOG) 0.1 % ointment Apply to affected area 2 times daily Active venlafaxine XR 24hr (EFFEXOR XR) 150 MG capsule once daily 10/19/19 Active venlafaxine XR 24hr (EFFEXOR XR) 75 MG capsule Take 225 mg by mouth once daily Active venlafaxine XR 24hr (EFFEXOR XR) 75 MG capsule 05/12/19 20 Active Active Problems Problem Noted Date Diagnosed Date Vitamin D deficiency 04/03/2019 Left leg pain 03/30/2019 Closed fracture of left fibula and tibia 020 Fall from ground level 03/30/2019 Fall 01/08/2019 Weakness 09/29/2018 Myelopathy Acute postoperative pulmonary insufficiency Hypertension, essential Anemia associated with acute blood loss Morbid obesity Pulmonary embolism and infarction Leukocytosis Closed fracture of posterior malleolus of left t ibia Family History Medical History Relation Name Comments Other - Cardiac Father CVA Mother Diabetes - Type 2 Mother Hyperlipidemia Mother Hypertension Mother Other - Cardiac Mother Relation Name Status Comments Father Mother Social History Tobacco Use Types Packs/Day Years Used Date Smoking Tobacco: Never Smokeless Tobacco: Never Alcohol Use Standard Drinks/Week Comments Never 0 (1 standard drink = 0.6 oz pur e alcohol) AUDIT-C Answer Date Recorded Frequency of Alcohol Consumption Never 09/29/2018 Average Number of Drinks Not on file 019 Frequency of Binge Drinking Not on file 09/15 Sex and Gender Information Value Date Recorded Sex Assigned at Not on file Legal Sex Male 5:46 AM DISTANCE LEARNING UNIT LEADER Gender Identity Not on file Sexual Orientation Not on file Last Filed Vital Signs Vital Sign Reading Time Taken Comments Blood Pressure 132/88 04/05/2019 4:48 PM DISTANCE LEARNING UNIT LEADER Pulse 98 04/05/2019 4:48 PM DISTANCE LEARNING UNIT LEADER Temperature 36.8 C (98.3 F) 04/05/2019 4:48 PM DISTANCE LEARNING UNIT LEADER Respiratory Rate 18 04/05/2019 4:48 PM DISTANCE LEARNING UNIT LEADER Oxygen Saturation 98% 04/05/2019 4:48 PM DISTANCE LEARNING UNIT LEADER Inhaled Oxygen Concentration 21% 03/31/2019 1 2:20 PM DISTANCE LEARNING UNIT LEADER Weight 174.2 kg (384 lb) 01/17/2020 11:34 AM DISTANCE LEARNING UNIT LEADER Height 190.5 cm (6' 3) 01/17/2020 11:34 AM DISTANCE LEARNING UNIT LEADER Body Mass Index 48 01/17/2020 11:34 AM DISTANCE LEARNING UNIT LEADER Plan of Treatment Health Maintenance Due Date Last Done Comments HIV SCREENING 2004 HEPATITIS C SCREENING 04/25/2007 DTAP/TDAP/TD VACCINES (1 - Tdap) 2008 HEPATITIS B VACCINE (1 of 3 - 19+ 3-dose series) 2008 HPV VACCINE (1 - 3-dose SCDM series) 2016 COVID-19 VACCINE (1 - 2023-2 5 season) 2023 DEPRESSION SCREENING 02/16/2024 INFLUENZA VACCINE (#1) 2024 ZOSTER VACCINE (1 of 2) 04/30/2039 HIB VACCINE Aged Out No longer eligi ble based on patient's age to complete this topic MENINGOCOCCAL (Group B) VACC INE SHARED DECISION-MAKING Aged Out No longer eligibl e based on patient's age to complete this topic MENINGOCOCCAL GROUPS A/C/Y/W VACCINE Aged Out No longer eligible b ased on patient's age to complete this topic PNEUMOCOCCAL VACCINE Aged Out No long er eligible based on patient's age to complete this topic Goals Goal Patient Goal Type Associated Problems Recent Progress Patient-Stated? Author Mobility General No Aries Waldrop, RN Note: Expected end date: ongoing The goal is to maintain or improve your mobility at the optimum level for you. Interventions: Medical Devices Implanted Type Area Helper Electrical Device Identifier Shelf Expiration Date Model / Serial / Lot Graft Bone Magnifuse Dbm 10x1cm - [id number] Implanted:Qty: 1 on 01/18/2019 by Pako Rebollar MD at [facility] [employer] 10/30/2020 [id number] / [id number] / Screw 5.5mm 30mm Ma Spne Solera Cd Hzn Implanted:Qty: 2 on 01/18/2019 by Pako Rebollar MD at [facility] N/A: Thoracic Medtronic [employer] [id number] / / Screw 5.5mm 35mm Ma Spne Solera Cd Hzn Implanted:Qty: 4 on 01/18/2019 by Pako Rebollar MD at [facility] N/A: Thoracic Medtronic Sofamor [employer] [id number] / / Screw 5.5mm 45mm Ma Spne Solera Cd Hzn Implanted:Qty: 6 on 01/18/2019 by Pako Rebollar MD at [facility] N/A: Thoracic Medtronic Sofamor [employer] [id number] / / Screw Set Ti Spnl Brk Off Cd Hzn Nonster Implanted:Qty: 12 on 01/18/2019 by Pako Rebollar MD at [facility] N/A: Thoracic Medtronic [employer]amor [employer] [id number] / / Saroj Spnl 300mm 5.5mm Lngt Ii Str Cocrmo Implanted:Qty: 1 on 01/18/2019 by Pako Rebollar MD at [facility] N/A: Thoracic Medtronic Sofamor [employer] Spine [id number] / / Cap End Unv Tib Im Nail Ti Strl Implanted:Qty: 1 on 03/31/2019 by Guicho Andrade MD at [facility] Left: Tibia [employer] 08/08/2021 5 / / [id number] Nail Im 10mm 40.5cm Versanail Tib Tmx Implanted:Qty: 1 on 03/31/2019 by Guicho Andrade MD at [facility] Left: [employer]ia [employer] 08/15/2023 [id number] / / [id number] Screw 4.5mm 42mm Oblq Ft Slf-Tap Sld 2 Implanted:Qty: 1 on 03/31/2019 by Guicho Andrade MD at [facility] Left: Tibia [employer] [id number] / / Screw 4.5mm 52mm Oblq Ft Slf-Tap Sld 2 Implanted:Qty: 1 on 03/31/2019 by Guicho Andrade MD at [facility] Left: Tibia [employer] [id number] / / Screw 5.5mm 50mm Ft Sld Lck Tib Christian Implanted:Qty: 1 on 03/31/2019 by Guicho Andrade MD at [facility] Left: Tibia [employer] [id number] / / Explanted Type Area Helper Electrical Device Identifier Shelf Expiration Date Model / Serial / Lot Cap End Unv Fem Tib Molly Ti Strl Explanted:Qty: 1 on 03/31/2019 by Guicho Andrade MD at [facility] Left: Tibia [employer] 11/04/2026 [id number] / / [id number] Wire K 2mm 150mm Troc Pnt Ss Fx Strl Explanted:Qty: 6 on 03/31/2019 by Guicho Andrade MD at [facility] Left: Tibia [employer] 08/12/2028 [id number] / / [id number] Pin Orth 14in 3.2mm [address] Versanail Explanted:Qty: 1 on 03/31/2019 by Guicho Andrade MD at [facility] Left: Tibia [employer] [id number] / / Screw 4.5mm 38mm Oblq Ft Slf-Tap Sld 2 Explanted:Qty: 1 on 03/31/2019 by Guicho Andrade MD at [facility] Left: Tibia [employer] [id number] / / Insurance [facility] * Guarantor: ARTURO MESA Account Type Relation to Patient Date of Phone Billing Address Personal/Family Advance Directives * Full Code (Latest Code Status on File) Date Activated Date Inactivated Comments 03/31/2019 4:48 PM 04/05/2019 6:43 PM * Full Code Date Activated Date Inactivated Comments 03/30/2019 10:33 PM 03/31/2019 4:48 PM * Full Code Date Activated Date Inactivated Comments 02/02/2019 2:04 AM 03/02/2019 1:09 PM * Full Code Date Activated Date Inactivated Comments 01/08/2019 7:23 PM 02/01/2019 9:12 PM * Full Code Date Activated Date Inactivated Comments 09/29/2018 10:34 PM 10/04/2018 6:53 PM Care Teams Professor Of Political Science Relationship Specialty Start Date End Date Michi Walker MD PCP - General 08/02/19
--- OUTSIDE RECORDS SUMMARY | 2024-09-11 11:43 | XMS_ITS | Clinical Summary ---
Author Organization [facility] Address [address] [place] [address] Care Team Providers Care Patient Services Clerk Name Role Phone Unavailable Primary Care Provider Unavailabl e Allergies No known active allergies Medications acetaminophen (TYLENOL) 325 MG tablet Take 2 tablets (650 mg total) by mouth every 6 (six) hours as needed for mild pain (1 - 3), moderate pain (4 - 6), Temp > or equal to 101F (38.3C) or headaches. 0 0 Active fluticasone (FLONASE) 50 MCG/ACT nasal solution Administer 1 spray (50 mcg total) into each nostril 2 (two) times a day. 9.9 mL 0 Active melatonin (SM MELATONIN) tablet Take 1 tablet (3 mg total) by mouth nightly as needed for sleep. 0 0 Active polyethylene glycol (MIRALAX) packet Take 17 g by mouth daily. 10 each 0 Active senna-docusate (SENOKOT-S) 8.6-50 MG Take 1 tablet by mouth 2 (two) times a day. 0 0 Active sodium phosphate enema (FLEET) 7-19 GM enema Insert 1 enema into the rectum daily as needed (offer if no BM in > or equal to 72 hours OR at patient request for constipation). 0 0 Active triamcinolone (KENALOG) 0.1 % cream Apply topically 2 (two) times a day. 15 g 0 Active Active Problems Problem Noted Date Diagnosed Date Moderate recurrent major depression 02/17/2019 Spinal stenosis of thoracic region 02/02/2019 Pulmonary embolism 02/02/2019 Hypertension 02/02/2019 Depressive disorder 02/02/2019 Immunizations Immunization Administration Dates Next Due Influenza, Unspecified 03/02/2019(Deferred: Violette ent Refused) Social History Tobacco Use Types Packs/Day Years Used Date Smoking Tobacco: Never Smokeless Tobacco: Never Alcohol Use Standard Drinks/Week Comments Never 0 (1 standard drink = 0.6 oz pur e alcohol) AUDIT-C Answer Date Recorded Frequency of Alcohol Consumption Never 02/02/2019 Average Number of Drinks Not on file 019 Frequency of Binge Drinking Not on file 01/15 Sex and Gender Information Value Date Recorded Sex Assigned at Not on file Legal Sex Male 12:11 PM EST Gender Identity Not on file Sexual Orientation Not on file Last Filed Vital Signs Vital Sign Reading Time Taken Comments Blood Pressure 130/85 03/02/2019 10:05 AM SKEINER Pulse 86 03/02/2019 7:47 AM SKEINER Temperature 36.7 C (98 F) 03/02/2019 7:47 AM SKEINER Respiratory Rate 18 03/02/2019 7:47 AM SKEINER Oxygen Saturation 99% 03/02/2019 7:47 AM SKEINER Inhaled Oxygen Concentration - - Weight 190.1 kg (419 lb) 03/01/2019 9:08 PM SKEINER Height 190.5 cm (6' 3) 02/19/2019 6:13 AM SKEINER Body Mass Index 52.37 02/19/2019 6:13 AM SKEINER Plan of Treatment Not on file Advance Directives * Full Resuscitation (Latest Code Status on File) Date Activated Date Inactivated Comments 02/01/2019 10:07 PM 03/02/2019 3:13 PM
--- OUTSIDE RECORDS SUMMARY | 2024-09-11 11:43 | XMS_ITS ---
Author Organization [facility] [employer] Care Team Providers Care Sound Controller Name Role Phone Akbar Peterson Unavailable Unavailable Allergies and adverse reactions No Known Allergies Care Team Name Role Address Phone Organization Dates Akbar Peterson PCP [address] [place], [address], [place] (Office): [facility] [employer] [place] [facility] 04/06/2019 - 07/14/2019 Immunizations Immunization Status Vaccine Details Vaccine Code CodeSystem Date Notes Influenza cancelled Influenza, high-dose, split virus, quadrivalent, injectable, preservative free 197 CVX created date: 04/24/2019 consent date: 04/24/2019 Educated by Chanelle on 04/24/2019 Mental Status Section Date Assessment Total Score Description 07/14/2019 BIMS 15 cognitively int act CAM 0 No delirium ind icated PHQ-9 00 04/14/2019 BIMS 15 cognitively int act CAM 0 No delirium ind icated PHQ-9 02 minimal depress ion Problems Problem # Description Date of onset Resolved Date Code CodeSystem Concern Status 1 ANXIETY DISORDER, UNSPECIFIED 04/05/[address] active 2 ARTHROPATHY, UNSPECIFIED 04/05/[address] active 3 CONSTIPATION, UNSPECIFIED 04/05/[address] active 4 ESSENTIAL (PRIMARY) HYPERTENSION 04/05/[address] active 5 MAJOR DEPRESSIVE DISORDER, SINGLE EPISODE, UNSPECIFIED 04/05/[address] active 6 MORBID (SEVERE) OBESITY DUE TO EXCESS CALORIES 04/05/[address] active 7 SCOLIOSIS, UNSPECIFIED 04/05/[address] active 8 SPINAL STENOSIS, SITE UNSPECIFIED 04/05/[address] active 9 UNSPECIFIED FRACTURE OF SHAFT OF LEFT TIBIA, SUBSEQUENT ENCOUNTER FOR CLOSED FRACTURE WITH ROUTINE HEALING 04/05/[address] active 10 VITAMIN D DEFICIENCY, UNSPECIFIED 04/05/[address] active Reason for Referral No Reasons for Referral Entered Social History Social History Observation Description Start Date End Date Code Code System Current Smoking Status Tobacco smoking consumption unknown 719498716 SNOMED CT Sex Assigned At Male 1990 28721-9 [facility] Gender Identity Vital Signs Code Code System Vitals Name Values and Units Timing Information 8462-4 [facility] Blood Pressure-Diastolic Value=90 Un its=mmHg 07/05/2019 8480-6 [facility] Blood Pressure-Systolic Iyxce=878 Un its=mmHg 07/05/2019 62358-7 [facility] O2 % BldC Oximetry Value=98.0 Units= % 07/03/2019 8310-5 [facility] Body Temperature Value=97.1 Units= F 07/03/2019 24034-6 [facility] Weight Cpukx=058.0 Units=Lbs 02/2019 9279-1 [facility] Respiratory Rate Value=16.0 Units=/m in 05/01/2019 8867-4 [facility] Heart rate Value=72.0 Units=/min 8302-2 [facility] Height Value=75.0 Units=Inches 04/06/2019
--- OUTSIDE RECORDS SUMMARY | 2024-09-11 11:44 | XMS_ITS | Clinical Summary ---
Author Organization [facility] Home [facility] Address [address] [place] [address] Care Team Providers Care Extractor And Wringer Operator Name Role Phone Raven Servin NP Primary Care Provider [phone] Allergies No known active allergies Medications acetaminophen [...] 02/24/2021 Assessment & Plan (02/24/2021 3:59 PM REMOTE SENSING PROGRAM MANAGER): Retrieve records from previous pcp for review [...] surgery. Assessment & Plan (02/24/2021 3:59 PM REMOTE SENSING PROGRAM MANAGER): Discussed the patient's BMI. The BMI is [...] provided. Assessment & Plan (02/24/2021 3:58 PM REMOTE SENSING PROGRAM MANAGER): Discussed the patient's BMI. The BMI is [...] psychiatrist Assessment & Plan (02/24/2021 3:59 PM REMOTE SENSING PROGRAM MANAGER): Stable, continue care same at this time Unspecified fracture of shaf t of left tibia, subsequent encounter for closed fracture with routine healing 04/05/2019 Scoliosis, unspecified 04/05/2019 Closed fracture of left fibula and tibia 020 Left leg pain 03/30/2019 Moderate recurrent major depression 02/17/2019 Other pulmonary embolism without acute cor pulmo nale 02/02/2019 Assessment & Plan (02/24/2021 3:58 PM REMOTE SENSING PROGRAM MANAGER): Retrieve records for review, including anticoagulation workup Spinal stenosis, site unspecified 02/02/2019 Assessment & Plan (05/19/2021 7:27 PM CDT): Will refer for PT Assessment & Plan (02/24/2021 3:58 PM REMOTE SENSING PROGRAM MANAGER): Stable, continue care same at this time [...] them Assessment & Plan (02/24/2021 3:59 PM REMOTE SENSING PROGRAM MANAGER): Stable, continue care same at this time Degeneration of lumbar or lumbosacral interverte bral disc 06/14/2014 Anxiety disorder, unspecified 06/14/2014 Other kyphoscoliosis and scoliosis 03/23/2006 Resolved Problems Problem Noted Date Diagnosed Date Resolved Date BMI 40.0-44.9, adult 07/14/2017 023 Encounters Date Type Department Care Team Description 09/07/2024 Orders Only [facility] [address] [place] [phone] Raven Servin NP Acute midline thoracic back pain (Primary Dx) 08/31/2024 11:30 AM CDT Office Visit [facility] [address] [place] [phone] Raven Servin NP Acute midline thoracic back pain (Primary Dx); Acute pain of left shoulder; BMI 50.0-59.9, adult ([facility]) 08/10/2024 Telephone [facility] [address] [place] [address] Raven Servin NP from Last 3 Months Immunizations Immunization Administration Dates Next Due Influenza, Unspecified 06/02/2023(Deferr ed: Patient Refused),02/15/2023(Deferred: Patient Refused),02/15/2023(Deferred: Patient Refused),06/01/2022(Deferred: Patient Refused),03/19/2021(Deferred: Patient Refused),02/24/2021(Deferred: Patient Refused) Tdap 07/14/2017 Surgical History Surgery Date Site/Laterality Comments BACK SURGERY ORIF TIBIA & FIBULA FRACTURES TONSILLECTOMY Medical History Medical History Date Comments Hypertension Scoliosis Arthritis Spinal stenosis Depression Anxiety Obesity Family History Medical History Relation Name Comments Hypertension Father Diabetes Mother Stroke Mother Relation Name Status Comments Father Alive Mother Social History Tobacco Use Types Packs/Day [...] on file Legal Sex Male 6:52 PM REMOTE SENSING PROGRAM MANAGER Gender Identity Not on file Sexual Orientation Not on file Occupation Industry Job Start Date Job End Date disabled Not on file Not on file Not on file Obstetrics History Last Filed Vital Signs Vital Sign Reading [...] 08/31/2024 11:35 AM CDT Plan of Treatment Health Maintenance Due Date Last Done Comments Hepatitis C Screening 1990 Varicella Vaccines (1 of 2 - 13+ 2-dose series) 2002 Hepatitis B Screening 04/30/2007 HPV Vaccines (1 - 3-dose SCDM series) 2016 Covid-19 Vaccine ( season) 2023 01/22/2021, 06/07/2020, 05/17/2020 Regular Well Visit/Exam 18-64 06/01/2024 06/02/2023, 06/01/2022 Influenza Vaccine (#1) 2024 Depression Screening 08/31/2025 08/31/2024, 12/08/2023, 08/30/2023, Additional history exists DTaP/Tdap/Td Vaccine (2 - Td or Tdap) 07/15/2027 07/14/2017 Pneumococcal vaccine <65 Aged Out No longer eligible based on patient's age to complete this topic Insurance [facility] Advance Directives For more information, please contact: [phone] * Full Code (Latest Code Status on File) Date Activated Date Inactivated Comments 03/03/2019 6:35 PM Care Teams Extractor And Wringer Operator Relationship Specialty Start Date End Date Raven Servin NP [address] [address] PCP - General Internal Medicine 06/01/22
== END 2024-09-11 11:17 | disposition home or self-care (01) ==
LOC: ANHIMG 11:24
PROVIDERS: PCP Nurse Practitioner Family; Visit Provider Nurse Practitioner Family
DX: S22.070A Wedge compression fracture of T9-T10 vertebra, initial encounter for closed fracture (principal); S22.060A Wedge compression fracture of T7-T8 vertebra, initial encounter for closed fracture; S22.080A Wedge compression fracture of T11-T12 vertebra, initial encounter for closed fracture; S32.010A Wedge compression fracture of first lumbar vertebra, initial encounter for closed fracture; M40.295 Other kyphosis, thoracolumbar region; Z98.1 Arthrodesis status
CPT/HCPCS: 72072; 72110